=== PATIENT | female | born 1995 ===

== ENCOUNTER 2025-07-01 13:30 | Outpatient (CLI) | payer BC, SELFPAY | END 2025-07-01 13:31 | disposition home or self-care (01) | LOC: NFLDREF 07-07 03:58 | PROVIDERS: Visit Provider Midwife | DX: Z34.93 Encounter for supervision of normal pregnancy, unspecified, third trimester (principal) | CPT/HCPCS: 86592 ==

== ENCOUNTER 2025-07-06 09:14 | Outpatient (CLI) | payer BC, SELFPAY ==
--- NOTE | 2025-07-06 09:15 | CRLHL7_ITS ---
For Patients: As a result of the Century Cures Act, medical imaging exams and procedure reports are released immediately into your electronic medical record. You may view this report before your referring provider. If you have questions, please contact your health care provider. OB ULTRASOUND FELICIA by US: 09/16/2025. GA: 29 w, 5 d. Single. Comparison: Outside facility - [facility]. INDICATION: Gestational diabetes mellitus. Growth. TECHNIQUE: Real time grayscale imaging of the fetus was performed. Transabdominal. CERVIX: Not visualized. POSITIONING: Vertex. AMNIOTIC FLUID: 6.7 cm. SDP (N: greater than 2 x 1 cm) PLACENTA: Technique: Transabdominal. PLACENTA POSITION: Anterior. DOPPLER: heart rate: 163 bpm. BIOMETRY: BPD: 7.8 cm. 31 w, 2 d, 83.7%. HC: 28.0 cm. 30 w, 4 d, 40.5%. AC: 26.7 cm. 30 w, 6 d, 76.3%. FL: 5.4 cm. 28 w, 5 d, 12.3%. FL/AC ratio: 20.3%. HC/AC ratio: 1.1. EFW: 1522g. Weight: 3 lbs., 6 oz. age by this US: 30 w, 3 d. FELICIA by this US: 09/11/2025. Percentile by FELICIA: 53.2%. IMPRESSION: 1. Sonographic gestational age 30 weeks 3 days and sonographic due date 09/11/2025. Sonographic age is 5 days ahead of the clinical age. 2. Estimated weight 53rd percentile. Abdominal circumference 76th percentile. Augustine Awad M.D. Diagnostic Radiologist [email or web address] ALEM/[email or web address] [email or web address]/Dictated by: Augustine Awad MD @ 07/06/2025 10:11:00 AM (Electronically Signed)
== END 2025-07-06 09:15 | disposition home or self-care (01) ==
LOC: US 09:14
PROVIDERS: Visit Provider Midwife
DX: O24.419 Gestational diabetes mellitus in pregnancy, unspecified control (principal); Z3A.29 29 weeks gestation of pregnancy
CPT/HCPCS: 76815

== ENCOUNTER 2025-07-28 12:48 | Outpatient (CLI) | payer BC, SELFPAY ==
--- NOTE | 2025-07-28 13:00 | CRLHL7_ITS ---
For Patients: As a result of the Cures Act, medical imaging exams and procedure reports are released immediately into your electronic medical record. You may view this report before your referring provider. If you have questions, please contact your health care provider. OB ULTRASOUND FELICIA by US: 09/16/2025. GA: 32 w, 6 d. Single. Comparison: 07/06/2025. INDICATION: Gestational diabetes mellitus. Growth. TECHNIQUE: Real time grayscale imaging of the fetus was performed. Transabdominal. CERVIX: Not visualized. POSITIONING: Vertex. AMNIOTIC FLUID: 5.5 cm. SDP (N: greater than 2 x 1 cm) PLACENTA: Technique: Transabdominal. PLACENTA POSITION: Anterior. DOPPLER: heart rate: 155 bpm. BIOMETRY: BPD: 8.7 cm. 35 w, 0 d, 93.4%. HC: 30.9 cm. 34 w, 3 d, 56.4%. AC: 30.9 cm. 34 w, 6 d, 94.5%. FL: 6.0 cm. 31 w, 0 d, 5.1%. FL/AC ratio: 19.3%. HC/AC ratio: 1.0. EFW: 2284g. Weight: 5 lbs., 1 oz. age by this US: 33 w, 6 d. FELICIA by this US: 09/09/2025. Percentile by FELICIA: 71.3%. IMPRESSION: 1. Sonographic gestational age 33 weeks 6 days and sonographic due date 09/09/2025. Sonographic age is 1 week ahead of the clinical age. 2. Estimated weight 71st percentile. Abdominal circumference 95th percentile. Augustine Awad M.D. Diagnostic Radiologist [email or web address] ALEM/[email or web address] cobb/Dictated by: Augustine Awad MD @ 07/28/2025 4:26:00 PM (Electronically Signed)
== END 2025-07-28 12:49 | disposition home or self-care (01) ==
LOC: US 12:48
PROVIDERS: Visit Provider Midwife
DX: O24.419 Gestational diabetes mellitus in pregnancy, unspecified control (principal); O36.63X0 Maternal care for excessive fetal growth, third trimester, not applicable or unspecified; Z3A.32 32 weeks gestation of pregnancy
CPT/HCPCS: 76816

== ENCOUNTER 2025-08-20 13:51 | Outpatient (CLI) | payer BC, SELFPAY ==
--- NOTE | 2025-08-20 14:00 | CRLHL7_ITS ---
For Patients: As a result of the Cures Act, medical imaging exams and procedure reports are released immediately into your electronic medical record. You may view this report before your referring provider. If you have questions, please contact your health care provider. OBSTETRICAL ULTRASOUND ??? FOLLOW-UP INDICATION: Gestational diabetes. Follow-up growth. CLINICAL HISTORY: FELICIA by Ultrasound: 09/16/2025 Gestational Age: 36 weeks 1 day Surgery: N/A COMPARISON: 07/28/2025, 07/06/2025. TECHNIQUE: Real-time sellers-scale transabdominal imaging of the fetus was performed. FINDINGS: Fetus: Single Cervix: Not visualized positioning: Vertex Amniotic Fluid: 6.8 cm SDP Placenta technique: Transabdominal Placenta position: Anterior heart rate: 159 bpm BIOMETRY: BPD: 9.16 cm, 37 weeks 1 day, 84.2% HC: 32.77 cm, 37 weeks 1 day, 45.9% AC: 34.44 cm, 38 weeks 2 days, 97% FL: 6.93 cm, 35 weeks 4 days, 30.6% FL/AC Ratio: 20.12% HC/AC ratio: 0.95 EFW: 3211 grams; 7 lbs. 1 oz. age by this ultrasound: 37 weeks 0 days FELICIA by this ultrasound: 09/10/2025 Percentile by FELICIA: 84.4% COMMENTS: [place] seen again today. IMPRESSION: 1. Sonographic gestational age is 37 weeks 0 days and sonographic due date is 09/10/2025. Sonographic age is 6 days ahead of the clinical age. 2. Estimated weight is 84th percentile. Abdominal circumference is greater than 97th percentile. AUGUSTINE ESPINOZA M.D. Diagnostic Radiologist [email or web address] Transcribed: 3:[address]/Dictated by: Augustine Espinoza MD @ 08/20/2025 3:02:00 PM (Electronically Signed)
== END 2025-08-20 13:52 | disposition home or self-care (01) ==
LOC: US 13:51
PROVIDERS: Visit Provider Midwife
DX: O24.419 Gestational diabetes mellitus in pregnancy, unspecified control (principal); O36.63X0 Maternal care for excessive fetal growth, third trimester, not applicable or unspecified; Z3A.36 36 weeks gestation of pregnancy
CPT/HCPCS: 76816

== ENCOUNTER 2025-08-20 15:33 | Outpatient (CLI) | payer BC, SELFPAY ==
[2025-08-21 14:25] LABS: Strep B DNA Probe Negative (Negative)
[2025-08-21 14:50] LABS: Strep B Susceptibility Needed? No
== END 2025-08-20 15:34 | disposition home or self-care (01) ==
LOC: NFLDREF 15:33
PROVIDERS: Visit Provider Midwife
DX: O24.410 Gestational diabetes mellitus in pregnancy, diet controlled (principal); Z3A.36 36 weeks gestation of pregnancy
CPT/HCPCS: 87081; 87653